=== PATIENT | female | born 1970 | race Caucasian/White ===

== ENCOUNTER 2022-12-12 16:23 | Outpatient (CLI) | payer BC, MEDICAID | END 2022-12-12 16:24 | disposition critical access hospital (66) | LOC: EMS 16:23 | DX: R45.89 Other symptoms and signs involving emotional state (principal); Z72.89 Other problems related to lifestyle | CPT/HCPCS: A0425; A0429 ==

== ENCOUNTER 2022-12-12 16:33 | Emergency (ER) | payer BC, MEDICAID ==
[2022-12-12 17:00] LABS: BASOPHILS # (AUTO) 0.1 10^3/uL (0.0-0.1); BASOPHILS % (AUTO) 0.5 %; EOSINOPHILS # (AUTO) 0.1 10^3/uL (0.0-0.7); EOSINOPHILS % (AUTO) 0.6 %; HCT - HEMATOCRIT 47.6 % (37.0-47.0); HGB - HEMOGLOBIN 16.3 g/dL (12.0-16.0); LYMPHOCYTES # (AUTO) 2.6 10^3/uL (1.5-3.5); LYMPHOCYTES % (AUTO) 24.9 %; MEAN CORPUSCULAR HEMOGLOBIN 34.8 pg (27.0-31.0); MEAN CORPUSCULAR HGB CONC 34.2 g/dL (32.0-36.0); MEAN CORPUSCULAR VOLUME 101.5 fL (81.0-99.0); MEAN PLATELET VOLUME 9.4 fL (7.9-10.8); MONOCYTES # (AUTO) 0.4 10^3/uL (0.0-1.0); MONOCYTES % (AUTO) 3.5 %; NEUTROPHILS # (AUTO) 7.3 10^3/uL (1.5-6.6); NEUTROPHILS % (AUTO) 70.1 %; PLT - PLATELET COUNT 248 10^3/uL (130-450); RED BLOOD COUNT 4.69 10^6/uL (4.20-5.40); RED CELL DISTRIBUTION WIDTH 14.3 % (12.0-15.0); WHITE BLOOD COUNT 10.4 x10^3/uL (4.8-10.8)
[2022-12-12] MEDS ORDERED: SODIUM CHLORIDE 0.9% 1,000 ML IV STA (17:03)
--- NOTE | 2022-12-12 17:10 | ED Physician Documentation ---
History of Present Illness - Stated complaint Stated Complaint: MHE/HBD - Chief complaint Chief Complaint: MHE - Additonal information Additional information: 51-year-old female presents to the emergency department to "make sure I am okay and I don't ." Patient presents intoxicated. She states that she does not want to deal with life and is stressed out so she drank a bottle of wine and then consumed a syringe of cannabis oil. She states that she was freaking out at home but had no intention of trying to harm herself or anybody else. She called 911 because she did not feel safe with the way she was feeling. Patient's son has subsequently called the emergency department and notified the nursing staff that he feels his mother is manic. He would like to speak to staff before she is discharged home. Review of Systems Unable to obtain: Intoxicated PD PAST MEDICAL HISTORY - Present Medications Home Medications: Ambulatory Orders Medication Instructions Recorded Confirmed Levothyroxine [Synthroid] 25 mcg PO QDAC 12/12/22 12/12/22 Oxycodone HCl 10 mg PO QID 12/12/22 12/12/22 clonazePAM [Clonazepam] 1 mg PO DAILY 12/12/22 12/12/22 - Allergies Allergies/Adverse Reactions: Allergies Allergy/AdvReac Type Severity Reaction Status Date / Time ketorolac [From Toradol] Allergy Hives Verified 12/12/22 17:31 propoxyphene [From Darvon] Allergy Rash Verified 12/12/22 17:31 cyclobenzaprine AdvReac Unknown Verified 12/12/22 17:31 [From Flexeril] latex AdvReac Unknown Verified 12/12/22 17:31 tramadol AdvReac Hives Verified 12/12/22 17:31 PD ED PE NORMAL - General General: Alert and oriented X 3, No acute distress, Well developed/nourished - HEENT HEENT: Atraumatic - Cardiac Cardiac: RRR, No murmur - Respiratory Respiratory: No respiratory distress, Clear bilaterally - Abdomen Abdomen: Normal bowel sounds, Soft, Non tender - Derm Derm: Normal color, Warm and dry, No rash - Extremities Extremities: No deformity - Neuro Neuro: Alert and oriented X 3, 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 appears intoxicated) Results - Vitals Vitals: Vital Signs - 24 hr 12/12/22 12/12/22 12/12/22 16:56 17:30 19:00 Temperature 98.4 C H Heart Rate 76 85 79 Respiratory 16 16 16 Rate Blood Pressure 160/95 H 123/83 H 108/62 O2 Saturation 100 97 99 12/12/22 21:06 Temperature Heart Rate 78 Respiratory 15 Rate Blood Pressure 99/63 O2 Saturation 98 Oxygen O2 Source Room air - Labs Labs: Laboratory Tests 12/12/22 12/12/22 12/12/22 16:48 16:48 16:48 WBC 10.4 RBC 4.69 Hgb 16.3 H Hct 47.6 H MCV 101.5 H MCH 34.8 H MCHC 34.2 RDW 14.3 Plt Count 248 MPV 9.4 Neut # (Auto) 7.3 H Lymph # (Auto) 2.6 [place] # (Auto) 0.4 Eos # (Auto) 0.1 Baso # (Auto) 0.1 Absolute Nucleated RBC 0.00 Nucleated RBC % 0.0 Sodium 141 Potassium 3.7 Chloride 108 Carbon Dioxide 21 Anion Gap 12.0 BUN 7 Creatinine 0.6 Estimated GFR (MDRD) 105 Glucose 91 Calcium 8.8 Total Bilirubin 0.5 AST 27 ALT 21 Alkaline Phosphatase 54 Total Protein 7.2 Albumin 4.5 Globulin 2.7 Albumin/Globulin Ratio 1.7 Lipase 31 TSH 0.89 Urine Color Urine Clarity Urine pH Ur Specific [place] Urine Protein Urine Glucose (UA) Urine Ketones Urine Occult Blood Urine Nitrite Urine Bilirubin Urine Urobilinogen Ur Leukocyte Esterase Urine RBC Urine WBC Ur Squamous Epith Cells Urine Bacteria Ur Microscopic Review Urine Culture Comments Salicylates < 6.0 Urine Opiates Screen Ur Oxycodone Screen Urine Methadone Screen Ur Propoxyphene Screen Acetaminophen < 10 L Ur Barbiturates Screen Ur Tricyclics Screen Ur Phencyclidine Scrn Ur Amphetamine Screen U Methamphetamines Scrn U Benzodiazepines Scrn Urine Cocaine Screen U Cannabinoids Screen Ethyl Alcohol 238.8 12/12/22 17:00 WBC RBC Hgb Hct MCV MCH MCHC RDW Plt Count MPV Neut # (Auto) Lymph # (Auto) [place] # (Auto) Eos # (Auto) Baso # (Auto) Absolute Nucleated RBC Nucleated RBC % Sodium Potassium Chloride Carbon Dioxide Anion Gap BUN Creatinine Estimated GFR (MDRD) Glucose Calcium Total Bilirubin AST ALT Alkaline Phosphatase Total Protein Albumin Globulin Albumin/Globulin Ratio Lipase TSH Urine Color STRAW Urine Clarity HAZY Urine pH 6.0 Ur Specific [place] 1.010 Urine Protein NEGATIVE Urine Glucose (UA) NEGATIVE Urine Ketones NEGATIVE Urine Occult Blood NEGATIVE Urine Nitrite NEGATIVE Urine Bilirubin NEGATIVE Urine Urobilinogen 0.2 (NORMAL) Ur Leukocyte Esterase TRACE H Urine RBC 0-5 Urine WBC 6-10 H Ur Squamous Epith Cells MANY Squamous H Urine Bacteria Many H Ur Microscopic Review INDICATED Urine Culture Comments NOT INDICATED Salicylates Urine Opiates Screen NEGATIVE Ur Oxycodone Screen NEGATIVE Urine Methadone Screen NEGATIVE Ur Propoxyphene Screen NEGATIVE Acetaminophen Ur Barbiturates Screen NEGATIVE Ur Tricyclics Screen NEGATIVE Ur Phencyclidine Scrn NEGATIVE Ur Amphetamine Screen NEGATIVE U Methamphetamines Scrn NEGATIVE U Benzodiazepines Scrn NEGATIVE Urine Cocaine Screen NEGATIVE U Cannabinoids Screen NEGATIVE Ethyl Alcohol PD Medical Decision Making - ED course Complexity details: reviewed results, re-evaluated patient, considered differential, d/w patient ED course: 51-year-old female was brought to the emergency department after she drank a bottle of wine at home and then consumed a full syringe of cbd oil. She reports to me that she was not trying to harm herself. She has no intention of suicide but she was feeling out of control and anxious about her family situation. On presentation to the emergency department she is hyperverbal and manic but is also clinically intoxicated. Patient is quite clear that she has no wish for self-harm. She is just afraid that the alcohol and cannabis oil that she co nsumed will kill her. Patient will require time to metabolize and then she will need to be reassessed. Patient's son has called and notified nursing staff that he is uncomfortable with her returning home tonight though once clinically sober, I do not see any criteria to detain the patient in the ER against her wishes if she should choose to leave. However pending sobriety I will place an order for social work consult in the morning. While here in the emergency department the patient has remained clinically stable. 2200: Patient will be signed out to my nighttime colleague to follow-up on any acute overnight events. Pending metabolizing to freedom versus social work in the a.m. As above, clinically I do not have any indication to detain the patient against her wishes should she choose to leave voluntarily once sober. She does not present as a risk to herself or others. Departure - Departure Clinical Impression: Alcohol intoxication Qualifiers: Complication of substance-induced condition: uncomplicated Qualified Code(s): F10.920 - Alcohol use, unspecified with intoxication, uncomplicated Condition: Stable Record reviewed to determine appropriate education?: Yes
[2022-12-12 17:18] LABS: ACETAMINOPHEN < 10 ug/mL (10-30); ALBUMIN 4.5 g/dL (3.2-5.5); ALBUMIN/GLOBULIN RATIO 1.7 (1.0-2.2); ALKALINE PHOSPHATASE 54 IU/L (42-121); ALT ALANINE AMINOTRANSFERASE 21 IU/L (10-60); AST ASPARTATE AMINOTRANSFERASE 27 IU/L (10-42); BILIRUBIN,TOTAL 0.5 mg/dL (0.2-1.0); BUN - BLOOD UREA NITROGEN 7 mg/dL (6-20); CALCIUM 8.8 mg/dL (8.5-10.3); CARBON DIOXIDE - CO2 21 mmol/L (21-32); CHLORIDE 108 mmol/L (101-111); CREATININE 0.6 mg/dL (0.4-1.0); ETOH - ETHANOL 238.8 mg/dL; GFR - MDRD 105 (>89); GLUCOSE 91 mg/dL (70-100); LIPASE 31 U/L (22-51); POTASSIUM 3.7 mmol/L (3.5-5.0); SALICYLATE < 6.0 mg/dL; SODIUM 141 mmol/L (135-145); TOTAL PROTEIN 7.2 g/dL (6.7-8.2)
[2022-12-12 17:19] LABS: BILIRUBIN,URINE NEGATIVE (NEGATIVE); GLUCOSE, URINE (UA) NEGATIVE (NEGATIVE); KETONES,URINE (UA) NEGATIVE (NEGATIVE); LEUKOCYTE ESTERASE, URINE TRACE (NEGATIVE); NITRITE,URINE NEGATIVE (NEGATIVE); OCCULT BLOOD,URINE NEGATIVE (NEGATIVE); PROTEIN,URINE NEGATIVE (NEGATIVE); UROBILINOGEN,URINE 0.2 (NORMAL) E.U./dL (NORMAL)
[2022-12-12 17:22] LABS: CLARITY,URINE HAZY (CLEAR)
[2022-12-12 17:32] LABS: AMPHETAMINE SCREEN,URINE NEGATIVE (NEGATIVE); BACTERIA,URINE Many /HPF (None Seen); BARBITURATE SCREEN,UR NEGATIVE (NEGATIVE); BENZODIAZEPINES SCREEN, URINE NEGATIVE (NEGATIVE); COCAINE SCREEN URINE NEGATIVE (NEGATIVE); METHADONE SCREEN, URINE NEGATIVE (NEGATIVE); METHAMPHETAMINES SCREEN, URINE NEGATIVE (NEGATIVE); MUDS CUTOFF CONCENTRATIONS N; OPIATE SCREEN, URINE NEGATIVE (NEGATIVE); OXYCODONE SCREEN, URINE NEGATIVE (NEGATIVE); PROPOXYPHENE SCREEN, URINE NEGATIVE (NEGATIVE); RBC,URINE 0-5 /HPF (0-5); SQUAMOUS EPITHELIAL CELL,UR MANY Squamous (<= Few); THC CANNABINOID SCREEN, URINE NEGATIVE (NEGATIVE); TRICYCLIC ANTIDEPRESSANT,URINE NEGATIVE (NEGATIVE)
--- NOTE | 2022-12-13 06:54 | ED Physician Documentation ---
ED Addendum - Addendum Addendum: 12/13/22 06:51 MICHAELLE. Patient endorsed to Dr. Bryson at 7am shift change pending SW.
[2022-12-13] MEDS ORDERED: oxyCODONE 5 MG TABLET PO STA ×2 (11:39→17:45)
--- NOTE | 2022-12-13 14:05 | ED Physician Documentation ---
ED Addendum - Addendum Addendum: 12/13/22 14:03 Please see my documentation yesterday for the patient's presentation to the emergency department where she was brought in for feeling unsafe after consuming a bottle of wine and consuming a syringe of CBD oil. At the time of presentation yesterday she had no SI or HI. She was allowed to remain in the emergency department until she had clinically sobered. She has subsequently been seen by our social organization professor who feels that she is at risk for self-harm and cannot contract for safety. The patient now is very unwilling to communicate with this provider. She will not allow PCR testing for COVID 19. She will not discuss with me if she has plans to harm herself. She had told the social organization professor that she was not stupid enough to tell us that and she reiterated the same sentiment to me. At this time she is boarding pending psychiatric placement. We are requesting DCR involvement As this patient clearly cannot contract for safety. 12/13/22 16:59 I have spoken with today's DCR Bonita. She reports to me that the patient is going to be involuntarily detained. The patient did agree to a voluntary self swab for COVID-19. Though the patient's affect is angry and she will not contract for safety, she has been generally compliant today in the emergency department. 12/13/22 17:38
[2022-12-13] MEDS ORDERED: oxyCODONE ER 10 MG TABLET PO SCH ×2 (19:00→20:00)
--- NOTE | 2022-12-13 19:29 | ED Physician Documentation ---
ED Addendum - Addendum Addendum: 12/13/22 19:28 Patient has expressed to nursing staff that she has been in constant pain all day. Patient reports to me that her primary doctor prescribes her oxycodone. She typically takes between 30 and 50 mg in the morning and will take it again later in the afternoon. When I queried the pharmacy dosing it appears that she would have been prescribed only 10 mg 3 times a day. Patient reports to me that she does not get oxycodone from outside pharmacies or off the streets. At this point however she does appear to be very uncomfortable and in pain and thus I have prescribed her oxycodone 30 mg twice daily to be delivered while she is here in the ER. DCR is still working to find placement for the patient in whom they have told me will be detained
--- NOTE | 2022-12-13 20:28 | ED Physician Documentation ---
ED Addendum - Addendum Addendum: 12/13/22 20:26 We have been notified that the patient will be formally detained by DCR. Treatment bed has been located at [facility] and [facility]. Appropriate COBRA paperwork has been filled out.
[2022-12-13 21:11] VITALS: BP 145/86
--- NOTE | 2022-12-13 22:08 | ED Physician Documentation ---
ED Addendum - Addendum Addendum: 12/13/22 22:07 Well after the patient left the nursing supervisor train operations at [facility] called me and told me that they were not accepting the patient. I discussed with her that the patient was already duly excepted and she stated that the patient had too many substance issues for them to take her. The patient at this point had probably been out the door already 45 minutes and she asked us to take the patient back which I said was unconscionable. I asked her why her processes had fallen apart and she hung up on me.
== END 2022-12-13 21:39 ==
LOC: ED 16:33
DX: F10.120 Alcohol abuse with intoxication, uncomplicated (principal); Y90.7 Blood alcohol level of 200-239 mg/100 ml; Z79.899 Other long term (current) drug therapy
CPT/HCPCS: 36415; 80053; 80306; 80307; 80320; 80329; 81001; 83690; 84443; 85025; 87635; 93005; 99284; 99285; A9270; 81003; 87086